=== PATIENT | female | born 1995 | race Caucasian/White ===

== ENCOUNTER 2017-01-12 18:31 | Inpatient (IN) | payer OTHER ==
[~2017-01-12] VITALS: Ht 167.6 cm; Wt 104.0 kg
[2017-01-12] MEDS: LACTATED RINGER'S 1,000 ML IV SCH
[2017-01-12 19:11] VITALS: Ht 167.6 cm; Wt 104.0 kg
[2017-01-12] MEDS ORDERED: LACTATED RINGER'S 1,000 ML IV ONE (19:30)
[2017-01-12] MEDS ORDERED: PREN1TAB79 PO (19:40)
[2017-01-12] MEDS ORDERED: FERR325C PO (19:40)
[2017-01-12 19:41] VITALS: BP 129/77
[2017-01-12] MEDS ORDERED: LACTATED RINGER'S 1,000 ML IV* SCH (20:30)
[2017-01-12 20:45] LABS: ADD UMIC YES; URINE BILIRUBIN (Dip) NEGATIVE (NEGATIVE); URINE BLOOD (Dip) NEGATIVE (NEGATIVE); URINE COLOR YELLOW (YELLOW); URINE GLUCOSE (Dip) NEGATIVE (NEGATIVE); URINE KETONES (Dip) TRACE (NEGATIVE); URINE LEUKOCYTE ESTERASE (Dip) 1+ (NEGATIVE); URINE NITRITE (Dip) NEGATIVE (NEGATIVE); URINE TOTAL PROTEIN (Dip) NEGATIVE (NEGATIVE); URINE UROBILINOGEN (Dip) 0.2 E.U./dL (0.1-1.0)
[2017-01-12 20:57] LABS: BACTERIA,URINE FEW; SQUAMOUS EPITHELIAL CELL,UR MODERATE
[2017-01-12 20:58] LABS: URINE RBCS 0-2 /HPF (0)
--- NOTE | 2017-01-12 21:02 | RADRPT ---
PROCEDURE: US OB AND ULTRASOUND CERVIX. CLINICAL INDICATION: Size and dates , labor TECHNIQUE: Multiple sonographic images of the pelvis and gravid uterus were obtained. The images were reviewed on a PACS workstation. Transvaginal images of the cervix were also obtained. COMPARISON: No prior studies are available for comparison. FINDINGS: The cervix is closed with a length of 4.2 cm. There is a single viable intrauterine gestation. Cardiac activity is present with 146 beats per min [place]. There is a vertex presentation. The placenta is anterior. There is no evidence for an abruption or placenta previa. There is a normal amount of amniotic fluid with an TOÑO = 9.1 cm. Measurements were made in order to determine age. The results are as follows: BPD =7.8 cm HC =28.2 cm AC =26.4 cm FL =6.3 cm Estimated gestational age of approximately 31 weeks and 2 days based on ultrasound measurements. Clinical age: 32 weeks and 3 days. The estimated date of delivery is 03/14/2017, based on ultrasound measurements. The EFW = 1725 g, 11%, based on LMP age. RPTAT: AA IMPRESSION: Single viable intrauterine gestation of approximately 31 weeks and 2 days based on ultrasound measu rements. .Jad Quiroz MD, Date Time Electronically viewed and signed by .Jad Quiroz MD, MD on 01/12/2017 21:02 .S/
[2017-01-12 22:00] LABS: ADD SCAN DIFF NO
[2017-01-12] MEDS ORDERED: MAGNESIUM SULFATE 4 GM/100 ML 100 ML IV ONE (22:00)
[2017-01-12 22:04] LABS: BASOPHILS % 0.3 % (0.0-2.0); EOSINOPHILS # 0.4 10^3/ul (0.0-0.5); EOSINOPHILS % 2.9 % (0.0-7.0); HEMATOCRIT 33.3 % (37.0-47.0); HEMOGLOBIN 10.8 g/dl (12.0-16.0); LYMPHOCYTES # 2.8 10^3/ul (0.8-2.9); LYMPHOCYTES % 18.7 % (18.0-55.0); MEAN CORPUSCULAR HEMOGLOBIN 27.5 pg (29.0-33.0); MEAN CORPUSCULAR HGB CONC 32.4 g/dl (32.0-37.0); MEAN CORPUSCULAR VOLUME 84.7 fl (72.0-104.0); MEAN PLATELET VOLUME 10.6 fl (7.4-10.4); MONOCYTES % 6.4 % (0.0-13.0); NEUTROPHIL # 10.6 10^3/ul (1.6-7.5); NEUTROPHILS % 71.1 % (30.0-74.0); PLATELET COUNT 317 10^3/UL (140-415); RED BLOOD COUNT 3.93 10^6/ul (4.20-5.40); RED CELL DISTRIBUTION WIDTH 13.5 % (11.5-14.5); WHITE BLOOD COUNT 14.9 10^3/ul (4.8-10.8)
[2017-01-12 22:28] LABS: INR 0.93; PROTIME 12.5 Sec (12.2-14.2)
[2017-01-12] MEDS: MAGNESIUM SULFATE 20 GM/500 ML 500 ML IV SCH (22:58)
[2017-01-12] MEDS: BETAMET NA PHOS/AC(6 MG/ML) 5ML INJ IM SCH (22:59)
--- NOTE | 2017-01-13 05:25 | TRIAGE ---
OB Triage Datetime Report Generated by CPN: 01/13/2017 05:25 Datetime: 01/13/2017 05:00 Labor Evaluation Frequency: 0 Monitor Mode: External Heart Rate FHR Baseline Rate: 130 Monitor Mode: External US FHR Baseline Changes: No Baseline Change Variability: Moderate 6-25 bpm Accelerations: 15X15 Decelerations: None Category: Category I Datetime: 01/13/2017 04:00 Labor Evaluation Frequency: 0 Monitor Mode: External Comments: POOR QUALITY WHILE SLEEPING ON HER SIDE. Datetime: 01/13/2017 03:00 Labor Evaluation Frequency: 0 Monitor Mode: External Heart Rate FHR Baseline Rate: 130 Monitor Mode: External US Comments: POOR QUALITY Datetime: 01/13/2017 02:21 Comments: UP TO BRP W/ASSIST Datetime: 01/13/2017 02:00 Labor Evaluation Frequency: 0 Monitor Mode: External Heart Rate FHR Baseline Rate: 130 Monitor Mode: External US FHR Baseline Changes: No Baseline Change Variability: Moderate 6-25 bpm Accelerations: 15X15 Decelerations: None Category: Category I Datetime: 01/13/2017 01:00 Labor Evaluation Frequency: 0 Monitor Mode: External Heart Rate FHR Baseline Rate: 130 Monitor Mode: External US FHR Baseline Changes: No Baseline Change Variability: Moderate 6-25 bpm Accelerations: 15X15 Decelerations: None Category: Category I Datetime: 01/13/2017 00:00 Labor Evaluation Frequency: 0 Monitor Mode: External Heart Rate FHR Baseline Rate: 130 Monitor Mode: External US FHR Baseline Changes: No Baseline Change Variability: Moderate 6-25 bpm Accelerations: 15X15 Decelerations: None Category: Category I Datetime: 01/12/2017 23:24 Stage of : Antepartum Assessment Type: Ongoing Assessment Maternal Assessment Level of Consciousness: Fully Conscious DTR's/Clonus: DTRs 2+; No Clonus Headache: Denies Blurred Vision: No Respiratory Effort: Unlabored; Regular Rhythm; Equal Expansion Breath Sounds, Left: Clear and Equal Breath Sounds, Right: Clear and Equal Nausea/Vomiting: Denies RUQ Epigastric Pain: Denies Lower Extremities Edema: None Degree: None Upper Extremities Edema: None Degree: None Facial Edema: None Temperature Route: Oral Fall Risk Assessment History of Falling: (0) No Secondary Diagnosis: (0) No Ambulatory Aid: (0) Bedrest/Nurse Assist IV Therapy: (0) No Gait: (0) Normal/Bedrest/Immobile Mental Status: (0) Oriented to Own Ability Fall Score: 0 Fall Risk Score Definition: No Risk: No action required Pain Assessment Pain Presence: None/Denies Pain Type: N/A Datetime: 01/12/2017 23:12 Vaginal Exam Membrane Status: Intact Datetime: 01/12/2017 23:00 Stage of : OB Triage Stage of : Antepartum Labor Evaluation Frequency: Occasional Monitor Mode: External Duration (sec)2399: 40 Quality: Mild Pattern: Normal: <= 5 Contractions in 10 Minutes Resting Tone [place]: Relaxed Heart Rate FHR Baseline Rate: 135 Monitor Mode: External US Variability: Moderate 6-25 bpm Accelerations: 15X15 Decelerations: None Category: Category I Datetime: 01/12/2017 22:00 Stage of : OB Triage Labor Evaluation Frequency: Occasional Monitor Mode: External Duration (sec)2399: 40-60 Quality: Mild Pattern: Normal: <= 5 Contractions in 10 Minutes Resting Tone [place]: Relaxed Heart Rate FHR Baseline Rate: 140 Monitor Mode: External US FHR Baseline Changes: No Baseline Change Variability: Moderate 6-25 bpm Accelerations: 15X15 Decelerations: None Category: Category I Datetime: 01/12/2017 21:26 Stage of : OB Triage Datetime: 01/12/2017 21:23 Stage of : OB Triage Datetime: 01/12/2017 21:00 Stage of : OB Triage Labor Evaluation Frequency: Occasional Monitor Mode: External Duration (sec)2399: 40-70 Quality: Mild Pattern: Normal: <= 5 Contractions in 10 Minutes Resting Tone [place]: Relaxed Heart Rate FHR Baseline Rate: 140 Monitor Mode: External US FHR Baseline Changes: No Baseline Change Variability: Moderate 6-25 bpm Accelerations: 15X15 Decelerations: None Category: Category I Datetime: 01/12/2017 20:01 Stage of : OB Triage Labor Evaluation Frequency: Irregular Monitor Mode: External Duration (sec)2399: 40-60 Quality: Mild Pattern: Normal: <= 5 Contractions in 10 Minutes Resting Tone [place]: Relaxed Heart Rate FHR Baseline Rate: 140 Monitor Mode: External US Variability: Moderate 6-25 bpm Accelerations: 15X15 Decelerations: Variable Category: Category II Datetime: 01/12/2017 19:23 Stage of : OB Triage Datetime: 01/12/2017 19:08 Assessment Type: Triage Maternal Assessment Level of Consciousness: Fully Conscious DTR's/Clonus: DTRs 2+; No Clonus Headache: Denies Blurred Vision: No Respiratory Effort: Unlabored; Regular Rhythm; Equal Expansion Breath Sounds, Left: Clear and Equal Breath Sounds, Right: Clear and Equal Nausea/Vomiting: Denies RUQ Epigastric Pain: Denies Facial Edema: None Fall Risk Assessment History of Falling: (0) No Secondary Diagnosis: (0) No Ambulatory Aid: (0) Bedrest/Nurse Assist IV Therapy: (0) No Gait: (0) Normal/Bedrest/Immobile Mental Status: (0) Oriented to Own Ability Fall Score: 0 Fall Risk Score Definition: No Risk: No action required Datetime: 01/12/2017 19:03 Time of Arrival: 01/12/2017 18:22 EGA: 32.3 Arrived By: Ambulatory Arrived From: Home Chief Complaint: pt. came to hospital c/o uc since 1030am, pain level 5/10 Movement: Present Contractions: Regular Abdominal Trauma: Not Applicable Patient Complaints: Contractions Time Provider Notified: 01/12/2017 19:00 Provider Notified: Initial Plan: u/s for efw, cxl, tere, ua, ffn, lr 1000 bolus
[2017-01-13] MEDS: MAGNESIUM SULFATE 20 GM/500 ML 500 ML IV SCH ×2 (07:49→17:04)
[2017-01-13] MEDS: MULTIVIT/MIN/FOLATE/IRON/PREN TAB PO SCH (08:37)
[2017-01-13] MEDS: FERROUS SULFATE (EC) 325 MG TAB PO SCH (08:37)
[2017-01-13] MEDS: LACTATED RINGER'S 1,000 ML IV SCH ×2 (09:37→22:52)
--- NOTE | 2017-01-13 14:43 | HP ---
DATE OF ADMISSION: 01/12/2017 HISTORY OF PRESENT ILLNESS: A 21-year-old female 3, para 1-0-1-1, estimated date of deliver y 03/06/2017 at 32+ weeks' gestation presented with contractions. The patient denied rupture of mem branes or vaginal bleeding. PAST MEDICAL HISTORY: Unremarkable. PAST SURGICAL HISTORY: section. ALLERGIES: NO KNOWN ALLERGIES. FAMILY HISTORY: Noncontributory. PHYSICAL EXAMINATION: VITAL SIGNS: Patient is afebrile. Vital signs stable. HEAD, NECK AND CHEST: Within normal limits. ABDOMEN: Soft, nontender and gravid. EXTREMITIES: Within normal limits. NEUROLOGIC: Within normal limits. On external monitor contractions are noted. Workup in the obstetrics triage included a Fibron ectin which was reported to be positive. IMPRESSION: at 32+ weeks with previous section and labor contractions. PLAN: Admit, intravenous magnesium sulfate for tocolysis. Intramuscular betamethasone for jorgito ng maturity. Dictated By: BEAU PATIÑO MD GD/NTS Conf#: [id number] DID#: [id number]
[2017-01-13] MEDS: BETAMET NA PHOS/AC(6 MG/ML) 5ML INJ IM SCH (22:48)
[2017-01-14] MEDS: MAGNESIUM SULFATE 20 GM/500 ML 500 ML IV SCH ×2 (02:14→12:59)
[2017-01-14] MEDS: FERROUS SULFATE (EC) 325 MG TAB PO SCH ×2 (09:23→22:21)
[2017-01-14] MEDS: MULTIVIT/MIN/FOLATE/IRON/PREN TAB PO SCH (09:23)
[2017-01-14] MEDS: LACTATED RINGER'S 1,000 ML IV SCH (12:49)
--- NOTE | 2017-01-14 18:43 | QN ---
Documentation Comment No complaint Afebrile VSS Continue with IV magnesium sulfate BEAU PATIÑO MD Jan 14, 2017 18:43
[2017-01-14 19:12] LABS: ADD SCAN DIFF NO
[2017-01-14 19:22] LABS: BASOPHILS % 0.1 % (0.0-2.0); EOSINOPHILS % 0.1 % (0.0-7.0); HEMOGLOBIN 9.9 g/dl (12.0-16.0); LYMPHOCYTES # 1.9 10^3/ul (0.8-2.9); LYMPHOCYTES % 11.6 % (18.0-55.0); MEAN CORPUSCULAR HEMOGLOBIN 29.1 pg (29.0-33.0); MEAN CORPUSCULAR HGB CONC 34.1 g/dl (32.0-37.0); MEAN CORPUSCULAR VOLUME 85.3 fl (72.0-104.0); MEAN PLATELET VOLUME 10.1 fl (7.4-10.4); MONOCYTE # 1.2 10^3/ul (0.3-0.9); MONOCYTES % 7.3 % (0.0-13.0); NEUTROPHILS % 79.4 % (30.0-74.0); PLATELET COUNT 319 10^3/UL (140-415); RED CELL DISTRIBUTION WIDTH 13.5 % (11.5-14.5); WHITE BLOOD COUNT 16.4 10^3/ul (4.8-10.8)
[2017-01-14 19:35] LABS: ALBUMIN 3.7 g/dl (3.3-4.9); ALBUMIN/GLOBULIN RATIO 1.23; CALCIUM 7.3 mg/dl (8.4-10.2); CREATININE 0.5 mg/dl (0.44-1.00); POTASSIUM 3.7 mmol/L (3.5-5.1); TOTAL PROTEIN 6.7 g/dl (6.1-8.1); URIC ACID 3.3 mg/dl (3.1-7.9)
[2017-01-14 19:43] LABS: ADD UMIC YES; URINE BILIRUBIN (Dip) NEGATIVE (NEGATIVE); URINE BLOOD (Dip) NEGATIVE (NEGATIVE); URINE COLOR LT. YELLOW (YELLOW); URINE GLUCOSE (Dip) NEGATIVE (NEGATIVE); URINE KETONES (Dip) NEGATIVE (NEGATIVE); URINE LEUKOCYTE ESTERASE (Dip) TRACE (NEGATIVE); URINE NITRITE (Dip) NEGATIVE (NEGATIVE); URINE TOTAL PROTEIN (Dip) NEGATIVE (NEGATIVE); URINE UROBILINOGEN (Dip) 0.2 E.U./dL (0.1-1.0)
[2017-01-14 20:05] LABS: SQUAMOUS EPITHELIAL CELL,UR MODERATE; URINE RBCS NONE SEEN /HPF (0)
[2017-01-14 20:06] LABS: BACTERIA,URINE MODERATE
[2017-01-15] MEDS: LACTATED RINGER'S 1,000 ML IV SCH ×2 (03:09→16:17)
[2017-01-15] MEDS: MULTIVIT/MIN/FOLATE/IRON/PREN TAB PO SCH (09:09)
[2017-01-15] MEDS: FERROUS SULFATE (EC) 325 MG TAB PO SCH ×2 (09:09→21:16)
[2017-01-15] MEDS: LABETALOL 100 MG TAB PO SCH ×2 (13:03→21:16)
--- NOTE | 2017-01-15 16:02 | CONS ---
DATE OF ADMISSION: 01/12/2017 DATE OF CONSULTATION: 01/15/2017 TYPE OF CONSULTATION: Obstetrics. HISTORY OF PRESENT ILLNESS: The patient apparently was admitted on the with complaint of contra ctions. She was placed on magnesium sulfate and given betamethasone. This morning she started havi ng elevated blood pressures in the severe range, she has no GI or neurologic symptoms. Her history i s significant of previous preeclampsia, diagnosed at 34 weeks with delivery at 40 weeks. OBSTETRIC HISTORY: Per above. REVIEW OF SYSTEMS: All negative. PHYSICAL EXAMINATION: VITAL SIGNS: Blood pressures currently was 66/72. Physical examination deferred. heart tone s reassuring with areas of interruption, but in all reassuring. Contractions overall none. AST, ALT, creatinine and platelets are normal. A 24-hour urine was started yesterday and will be ov er at about 8 this evening. IMPRESSION: 1. Intrauterine at 32 weeks and 6 days, status post magnesium sulfate and betamethasone f or labor with currently newly diagnosed severe gestational hypertension pending 24-hour urin e protein results. 2. History of preeclampsia. RECOMMENDATIONS: Start labetalol 100 mg twice a day. We will follow up with the results of the 24- hour urine for protein tomorrow and depending on the effect of the blood pressure medications on blo od pressure, then also the result of the 24-hour urine for protein and status and maternal sta tus, we will decide on disposition tomorrow. Dictated By: VIRGINIA CARTER/ANI Conf#: [id number] DID#: [id number]
--- NOTE | 2017-01-15 20:31 | QN ---
Documentation Comment No complaint Afebrile BP improved after patine is started on Labetalol Strip Reactive Await 24 hour urine collection. BEAU PATIÑO MD Jan 15, 2017 20:31
[2017-01-16] MEDS: LACTATED RINGER'S 1,000 ML IV SCH (06:09)
[2017-01-16] MEDS: MULTIVIT/MIN/FOLATE/IRON/PREN TAB PO SCH (08:50)
[2017-01-16] MEDS: LABETALOL 100 MG TAB PO SCH (08:51)
[2017-01-16] MEDS: FERROUS SULFATE (EC) 325 MG TAB PO SCH (08:51)
--- NOTE | 2017-01-16 13:44 | DS ---
DATE OF ADMISSION: 01/12/2017 DATE OF DISCHARGE: 01/16/2017 ADMITTING DIAGNOSIS: at 32+ weeks with previous section and labor contractions. HISTORY: A 21-year-old female 3, para 1-0-1-1 at 32+ weeks' gestation at the time of admiss ion. The patient presented with contractions. PAST SURGICAL HISTORY: Significant for section. HOSPITAL COURSE: The patient was admitted on 01/12/2017. The patient was given intravenous magnesi um sulfate for tocolysis, intramuscular betamethasone was given for lung maturity. During the hospital course, the patient's blood pressure was noted to be increasing. The patient had workup w ith -induced hypertension panel and 24-hour urine collection. After completing the course of betamethasone, magnesium sulfate was discontinued. The workup for preeclampsia revealed a 24-nicol r urine collection total protein 476. The patient's platelets and liver enzymes were normal. The p atient was evaluated by perinatologist, Dr. Cid, on 01/15/2017. The patient was started on labeta lol to control her blood pressure. Recommendation of perinatologist was to discharge the patient ho nv on 01/16/2017 with outpatient followup. CONDITION ON DISCHARGE: Stable. DISCHARGE INSTRUCTIONS 1. Diet: Regular. 2. Activities: Modified bed rest at home. MEDICATIONS: 1. Labetalol 100 mg 3 times a day. 2. Continue with vitamins and ferrous sulfate. FOLLOWUP: Follow up in antepartum unit on 01/19/2017 for antepartum testing. FINAL DIAGNOSES: 1. , not delivered. 2. Threatened labor. 3. Preeclampsia. Dictated By: BEAU CAIN/NTS Conf#: [id number] DID#: [id number]
== END 2017-01-16 12:50 | disposition home or self-care (01) | DRG 778 ==
LOC: OBT 18:31 → L-D 18:31 → OBG 21:29 → OBT 21:29 → OBG 01-15 20:35
PROVIDERS: ADMIT Obstetrics & Gynecology; ATTEND Obstetrics & Gynecology
DX: O60.03 Preterm labor without delivery, third trimester (principal); O14.93 Unspecified pre-eclampsia, third trimester; Z3A.32 32 weeks gestation of pregnancy
CPT/HCPCS: 36415; 76815; 76817; 80053; 81001; 82731; 83735; 84156; 84560; 85025; 85610; 85730; 86592; 86900; 86901; 87086; 96360; 96361; 96365; 96372; G0463; J0702; J3475; J7120

== ENCOUNTER 2017-02-28 20:21 | Inpatient (IN) | payer OTHER ==
[~2017-02-28] VITALS: Ht 167.6 cm; Wt 110.8 kg
[~2017-02-28 20:21] MED LIST: FERR325C PO; PREN1TAB79 PO
[2017-02-28] MEDS ORDERED: METHYLERGONOVINE 0.2 MG INJ IM PRN (21:30)
[2017-02-28] MEDS ORDERED: MISOPROSTOL 200 MCG TAB PR PRN (21:30)
[2017-02-28] MEDS ORDERED: CARBOPROST 250 MCG INJ IM PRN (21:30)
[2017-02-28] MEDS ORDERED: LACTATED RINGER'S 1,000 ML IV ONE (21:30)
[2017-02-28] MEDS ORDERED: OXYTOCIN 30 UNITS/LR 500 ML IV PRN (21:30)
[2017-02-28] MEDS ORDERED: CEFAZOLIN 2 GM/50 ML (PMX) 50 ML IV SCH (21:30)
[2017-02-28 21:53] VITALS: Ht 167.6 cm; Wt 110.8 kg
[2017-02-28 21:54] VITALS: BP 127/59; RESP 18
[2017-02-28 21:57] LABS: ADD SCAN DIFF NO
[2017-02-28 21:59] LABS: BASOPHIL # 0.1 10^3/ul (0.0-0.1); BASOPHILS % 0.4 % (0.0-2.0); EOSINOPHILS # 0.2 10^3/ul (0.0-0.5); EOSINOPHILS % 1.9 % (0.0-7.0); HEMATOCRIT 31.8 % (37.0-47.0); HEMOGLOBIN 10.7 g/dl (12.0-16.0); LYMPHOCYTES # 2.5 10^3/ul (0.8-2.9); LYMPHOCYTES % 20.8 % (18.0-55.0); MEAN CORPUSCULAR HGB CONC 33.6 g/dl (32.0-37.0); MEAN CORPUSCULAR VOLUME 83.2 fl (72.0-104.0); MEAN PLATELET VOLUME 10.1 fl (7.4-10.4); MONOCYTE # 0.9 10^3/ul (0.3-0.9); MONOCYTES % 7.4 % (0.0-13.0); NEUTROPHIL # 8.4 10^3/ul (1.6-7.5); PLATELET COUNT 330 10^3/UL (140-415); RED BLOOD COUNT 3.82 10^6/ul (4.20-5.40); RED CELL DISTRIBUTION WIDTH 14.1 % (11.5-14.5); WHITE BLOOD COUNT 12.2 10^3/ul (4.8-10.8)
[2017-02-28] MEDS ORDERED: ONDANSETRON 4 MG INJ IV ONE (22:36)
[2017-02-28] MEDS ORDERED: NALOXONE (0.4 MG/ML) INJ IV PRN (23:00)
[2017-02-28] MEDS ORDERED: DIPHENHYDRAMINE 50 MG INJ IV PRN (23:00)
[2017-02-28] MEDS ORDERED: KETOROLAC 30 MG INJ IV PRN (23:00)
[2017-02-28] MEDS ORDERED: HYDROmorphONE (0.2 MG/ML) 10ML SYG IV PRN (23:00)
[2017-02-28] MEDS ORDERED: HYDROmorphONE 1 MG/ML SYG IV PRN (23:00)
[2017-02-28] MEDS ORDERED: PROCHLORPERAZINE 10 MG INJ IV PRN ×2 (23:00)
[2017-02-28] MEDS ORDERED: FAMOTIDINE 20 MG INJ IV ONE (23:00)
[2017-02-28] MEDS ORDERED: MEPERIDINE 25 MG INJ IV PRN (23:00)
[2017-02-28] MEDS ORDERED: ONDANSETRON 4 MG INJ IV PRN ×2 (23:00)
[2017-02-28 23:11] LABS: INR 0.89; PARTIAL THROMBOPLASTIN TIME 25.8 Sec (25.0-35.0); PT RATIO 0.9
--- NOTE | 2017-02-28 23:46 | HP ---
Date/Time of Note Date/Time of Note DATE: 02/28/17 TIME: 23:41 OB - History Hx of Present Chief Complaint: contractions Estimated Due Date: Mar 06, 2017 : 4 Para: 1 Spontaneous : 1 Therapeutic : 0 Care: Good Care Ultrasounds: Normal mid trimester US Obstetrical Complications: None Medical Complications: None Past Family/Social History * Past Medical, Surgical, Family and Obstetric Histories reviewed from chart. GBS Status: Negative OB Admission Exam Vital Signs Vital Signs Vital Signs Date Time Temp Pulse Resp B/P Pulse Ox O2 Delivery O2 Flow Rate FiO2 02/28/17 21:54 98.3 18 127/59 Room Air Physical Exam HEENT: WNL Heart: Rhythm Normal Lungs: Clear, Equal Abdomen: WNL Extremities: Normal Reflexes: Normal Heart Rate: 120's Accelerations: Accelerations Present Decelerations: No Decelerations Varibility: Moderate Last 72 hours Lab Results CBC & BMP 02/28/17 21:45 OB Assessment/Plan Reason for admission: other ( 39 weeks and 1 day with previous Cesarea.) Plan: Section BEAU PATIÑO MD Feb 28, 2017 23:46
[2017-02-28] MEDS ORDERED: morphine SULFATE/PF (10 MG/10 ML) INJ ONE (23:51)
[2017-02-28] MEDS ORDERED: OXYTOCIN 10 UNIT INJ ONE (23:51)
[2017-03-01] MEDS ORDERED: DEXAMETHASONE 4 MG/ML 1 ML INJ ONE (00:20)
[2017-03-01] MEDS ORDERED: NEOSTIGMINE 3 MG/3 ML SYRINGE ONE (00:20)
[2017-03-01] MEDS ORDERED: METOCLOPRAMIDE 10 MG INJ ONE (00:20)
[2017-03-01] MEDS ORDERED: PHENYLephrine (100 MCG/ML) 5ML SYG ONE ×2 (00:20→00:39)
[2017-03-01] MEDS ORDERED: EPHEDrine SULFATE 50 MG/5 ML SYG ONE (00:21)
--- NOTE | 2017-03-01 01:31 | TRIAGE ---
OB Triage Datetime Report Generated by CPN: 03/01/2017 01:30 Datetime: 02/28/2017 22:30 Stage of : Labor Labor Evaluation Frequency: 2-10 Monitor Mode: External Duration (sec)2399: 40-60 Pattern: Normal: <= 5 Contractions in 10 Minutes Resting Tone [place]: Relaxed Heart Rate FHR Baseline Rate: 120 Monitor Mode: External US Variability: Moderate 6-25 bpm Accelerations: 15X15 Decelerations: None Category: Category I Pain Assessment Pain Scale: 7 Pain Presence: Intermittent Pain Type: Contraction Pain Location: Abdomen Pain Relief Measures: Comfort Measures Datetime: 02/28/2017 22:02 Time of Arrival: 02/28/2017 21:30 EGA: 39.1 Arrived By: Wheelchair Arrived From: Emergency Dept Movement: Present Patient Complaints: Contractions Time Provider Notified: 02/28/2017 20:10 Provider Notified: Dr Anthony Datetime: 02/28/2017 21:30 Assessment Type: Admission Assessment Time of Arrival: 02/28/2017 20:10 EGA: 39.1 Arrived By: Wheelchair Arrived From: Home Chief Complaint: G 3P1 w/ hx c/s x1 sent from clinic d/t c/o occas uc. Pt w/ limited care and HTN on labetalol Movement: Present Contractions: Irregular Contractions: q30-60 Rupture of Membranes: Denies Vaginal Bleeding: None Vaginal Discharge: Denies Recent Sexual Intercouse: Denies Abdominal Trauma: Not Applicable Patient Complaints: Contractions Time Provider Notified: 03/01/2017 20:10 Provider Notified: Dr Anthony Initial Plan: EFM Maternal Assessment Level of Consciousness: Fully Conscious DTR's/Clonus: DTRs 2+; No Clonus Headache: Denies Blurred Vision: No Respiratory Effort: Unlabored; Regular Rhythm; Equal Expansion Breath Sounds, Left: Clear and Equal Breath Sounds, Right: Clear and Equal Nausea/Vomiting: Denies RUQ Epigastric Pain: Denies Lower Extremities Edema: None Degree: None Upper Extremities Edema: None Degree: None Facial Edema: None Fall Risk Assessment History of Falling: (0) No Secondary Diagnosis: (0) No Ambulatory Aid: (0) Bedrest/Nurse Assist IV Therapy: (20) Yes Gait: (0) Normal/Bedrest/Immobile Mental Status: (0) Oriented to Own Ability Fall Score: 20 Fall Risk Score Definition: No Risk: No action required Labor Evaluation Frequency: 1.5-5 Duration (sec)2399: 40-60 Pattern: Normal: <= 5 Contractions in 10 Minutes Resting Tone [place]: Relaxed Heart Rate FHR Baseline Rate: 125 Variability: Moderate 6-25 bpm Accelerations: 15X15 Decelerations: None Category: Category I Pain Assessment Pain Scale: 6 Pain Presence: Intermittent Pain Type: Contraction Pain Location: Abdomen Pain Goal: 2 Datetime: 01/16/2017 12:19 Temperature Route: Oral Datetime: 01/16/2017 10:19 Labor Evaluation Frequency: 0 Monitor Mode: External Pattern: Normal: <= 5 Contractions in 10 Minutes Resting Tone [place]: Relaxed Heart Rate FHR Baseline Rate: 130 Monitor Mode: External US FHR Baseline Changes: No Baseline Change Variability: Moderate 6-25 bpm Accelerations: 15X15 Decelerations: None Category: Category I Datetime: 01/16/2017 09:00 Labor Evaluation Frequency: 0 Monitor Mode: External Pattern: Normal: <= 5 Contractions in 10 Minutes Resting Tone [place]: Relaxed Heart Rate FHR Baseline Rate: 120 Monitor Mode: External US FHR Baseline Changes: No Baseline Change Variability: Moderate 6-25 bpm Accelerations: 15X15 Decelerations: None Category: Category I Datetime: 01/16/2017 07:41 Assessment Type: Ongoing Assessment Maternal Assessment Level of Consciousness: Fully Conscious DTR's/Clonus: DTRs 2+; No Clonus Headache: Denies Blurred Vision: No Respiratory Effort: Unlabored; Regular Rhythm; Equal Expansion Breath Sounds, Left: Clear and Equal Breath Sounds, Right: Clear and Equal Nausea/Vomiting: Denies RUQ Epigastric Pain: Denies Lower Extremities Edema: None Degree: None Upper Extremities Edema: None Degree: None Facial Edema: None Temperature Route: Oral Fall Risk Assessment History of Falling: (0) No Secondary Diagnosis: (0) No Ambulatory Aid: (0) Bedrest/Nurse Assist Gait: (0) Normal/Bedrest/Immobile Mental Status: (0) Oriented to Own Ability Labor Evaluation Frequency: 0 Monitor Mode: External Pattern: Normal: <= 5 Contractions in 10 Minutes Resting Tone [place]: Relaxed Heart Rate FHR Baseline Rate: 120 Monitor Mode: External US FHR Baseline Changes: No Baseline Change Variability: Moderate 6-25 bpm Accelerations: 15X15 Decelerations: None Category: Category I Pain Assessment Pain Scale: 0 Pain Presence: None/Denies Datetime: 01/16/2017 06:25 Stage of : Antepartum Monitor Mode: External Quality: Mild Pattern: Normal: <= 5 Contractions in 10 Minutes Resting Tone [place]: Relaxed Heart Rate FHR Baseline Rate: 140 Monitor Mode: External US Variability: Moderate 6-25 bpm Accelerations: 15X15 Pain Assessment Pain Scale: 0 Pain Presence: None/Denies Pain Type: N/A Datetime: 01/16/2017 05:36 Stage of : Antepartum Monitor Mode: External Resting Tone [place]: Relaxed Heart Rate FHR Baseline Rate: 130 Monitor Mode: External US Pain Presence: None/Denies Datetime: 01/16/2017 04:19 Stage of : Antepartum Monitor Mode: External Resting Tone [place]: Relaxed Heart Rate FHR Baseline Rate: 140 Monitor Mode: External US Datetime: 01/16/2017 03:00 Stage of : Antepartum Monitor Mode: External Quality: Mild Pattern: Normal: <= 5 Contractions in 10 Minutes Resting Tone [place]: Relaxed Heart Rate FHR Baseline Rate: 135 Monitor Mode: External US FHR Baseline Changes: No Baseline Change Comments: Baby difficult to monitor d/t pt position Datetime: 01/16/2017 02:04 Stage of : Antepartum Heart Rate FHR Baseline Rate: 150 Monitor Mode: External US Comments: Baby difficult to keep on monitor. Pt sleeping and requested to be left alone to sleep Datetime: 01/16/2017 01:43 Monitor Mode: External Quality: Mild Pattern: Normal: <= 5 Contractions in 10 Minutes Resting Tone [place]: Relaxed Heart Rate FHR Baseline Rate: 140 Monitor Mode: External US Variability: Moderate 6-25 bpm Accelerations: 15X15 Datetime: 01/15/2017 23:55 Monitor Mode: External Quality: Mild Resting Tone [place]: Relaxed Monitor Mode: External US Variability: Moderate 6-25 bpm Comments: Pt requests to be left alone to sleep Datetime: 01/15/2017 23:20 Stage of : Antepartum Heart Rate FHR Baseline Rate: 130 Monitor Mode: External US Variability: Moderate 6-25 bpm Accelerations: 15X15 Decelerations: None Category: Category I Datetime: 01/15/2017 22:53 Stage of : Antepartum Monitor Mode: External Quality: Mild Resting Tone [place]: Relaxed Heart Rate FHR Baseline Rate: 135 Monitor Mode: External US Variability: Moderate 6-25 bpm Pain Assessment Pain Scale: 0 Pain Presence: None/Denies Pain Type: N/A Datetime: 01/15/2017 22:17 Stage of : Antepartum Monitor Mode: External Quality: Mild Resting Tone [place]: Relaxed Heart Rate FHR Baseline Rate: 140 Monitor Mode: External US Variability: Moderate 6-25 bpm Accelerations: 15X15 Decelerations: None Category: Category I Pain Presence: None/Denies Pain Type: N/A Datetime: 01/15/2017 21:47 Stage of : Antepartum Monitor Mode: External Quality: Mild Pattern: Normal: <= 5 Contractions in 10 Minutes Resting Tone [place]: Relaxed Heart Rate FHR Baseline Rate: 160 Monitor Mode: External US Variability: Moderate 6-25 bpm Accelerations: 15X15 Decelerations: None Category: Category I Pain Assessment Pain Scale: 0 Pain Presence: None/Denies Pain Type: N/A Datetime: 01/15/2017 21:18 Stage of : Antepartum Labor Evaluation Frequency: placed Monitor Mode: External Resting Tone [place]: Relaxed Comments: FHT 180 after hot shower Pain Assessment Pain Scale: 0 Pain Presence: None/Denies Pain Type: N/A Datetime: 01/15/2017 20:30 Stage of : Antepartum Datetime: 01/15/2017 20:05 Assessment Type: Ongoing Assessment Maternal Assessment Level of Consciousness: Fully Conscious DTR's/Clonus: DTRs 2+; No Clonus Headache: Denies Blurred Vision: No Respiratory Effort: Unlabored; Regular Rhythm; Equal Expansion Breath Sounds, Left: Clear and Equal Breath Sounds, Right: Clear and Equal Nausea/Vomiting: Denies RUQ Epigastric Pain: Denies Lower Extremities Edema: None Degree: None Upper Extremities Edema: None Degree: None Facial Edema: None Fall Risk Assessment History of Falling: (0) No Secondary Diagnosis: (0) No Ambulatory Aid: (0) Bedrest/Nurse Assist IV Therapy: (20) Yes Gait: (0) Normal/Bedrest/Immobile Mental Status: (0) Oriented to Own Ability Fall Score: 20 Fall Risk Score Definition: No Risk: No action required Datetime: 01/15/2017 19:19 Stage of : Antepartum Temperature Route: Oral Monitor Mode: External Quality: Mild Pattern: Normal: <= 5 Contractions in 10 Minutes Resting Tone [place]: Relaxed Heart Rate FHR Baseline Rate: 150 Monitor Mode: External US FHR Baseline Changes: No Baseline Change Variability: Moderate 6-25 bpm Accelerations: 15X15 Decelerations: Variable Category: Category II Pain Assessment Pain Scale: 0 Pain Presence: None/Denies Pain Type: N/A Datetime: 01/15/2017 18:59 Labor Evaluation Frequency: 0 Monitor Mode: External Pattern: Normal: <= 5 Contractions in 10 Minutes Resting Tone [place]: Relaxed Heart Rate FHR Baseline Rate: 140 Monitor Mode: External US FHR Baseline Changes: No Baseline Change Variability: Moderate 6-25 bpm Accelerations: 15X15 Decelerations: None Category: Category I Datetime: 01/15/2017 17:52 Labor Evaluation Frequency: 0 Monitor Mode: External Pattern: Normal: <= 5 Contractions in 10 Minutes Resting Tone [place]: Relaxed Heart Rate FHR Baseline Rate: 140 Monitor Mode: External US FHR Baseline Changes: No Baseline Change Variability: Moderate 6-25 bpm Accelerations: 15X15 Decelerations: None Category: Category I Datetime: 01/15/2017 16:52 Labor Evaluation Frequency: X1/HR Monitor Mode: External Duration (sec)2399: 50 Pattern: Normal: <= 5 Contractions in 10 Minutes Resting Tone [place]: Relaxed Heart Rate FHR Baseline Rate: 140 Monitor Mode: External US FHR Baseline Changes: No Baseline Change Variability: Moderate 6-25 bpm Accelerations: 15X15 Decelerations: None Category: Category I Datetime: 01/15/2017 16:00 Temperature Route: Oral Labor Evaluation Frequency: 0 Monitor Mode: External Pattern: Normal: <= 5 Contractions in 10 Minutes Resting Tone [place]: Relaxed Heart Rate FHR Baseline Rate: 130 Monitor Mode: External US FHR Baseline Changes: No Baseline Change Variability: Moderate 6-25 bpm Accelerations: 15X15 Decelerations: None Category: Category I Datetime: 01/15/2017 15:00 Labor Evaluation Frequency: X1/HR Monitor Mode: External Duration (sec)2399: 40 Pattern: Normal: <= 5 Contractions in 10 Minutes Resting Tone [place]: Relaxed Heart Rate FHR Baseline Rate: 130 Monitor Mode: External US FHR Baseline Changes: No Baseline Change Variability: Moderate 6-25 bpm Accelerations: 15X15 Decelerations: None Category: Category I Datetime: 01/15/2017 14:00 Labor Evaluation Frequency: 0 Monitor Mode: External Pattern: Normal: <= 5 Contractions in 10 Minutes Resting Tone [place]: Relaxed Heart Rate FHR Baseline Rate: 130 Monitor Mode: External US FHR Baseline Changes: No Baseline Change Variability: Moderate 6-25 bpm Accelerations: 15X15 Decelerations: None Category: Category I Datetime: 01/15/2017 13:00 Labor Evaluation Frequency: 0 Monitor Mode: External Pattern: Normal: <= 5 Contractions in 10 Minutes Resting Tone [place]: Relaxed Heart Rate FHR Baseline Rate: 130 Monitor Mode: External US FHR Baseline Changes: No Baseline Change Variability: Moderate 6-25 bpm Accelerations: 15X15 Decelerations: None Category: Category I Datetime: 01/15/2017 12:00 Temperature Route: Oral Labor Evaluation Frequency: X1/HR +IRRIT Monitor Mode: External Duration (sec)2399: 50 Pattern: Normal: <= 5 Contractions in 10 Minutes Resting Tone [place]: Relaxed Heart Rate FHR Baseline Rate: 120 Monitor Mode: External US FHR Baseline Changes: No Baseline Change Variability: Moderate 6-25 bpm Accelerations: 15X15 Decelerations: None Category: Category I Datetime: 01/15/2017 11:00 Labor Evaluation Frequency: 0 Monitor Mode: External Pattern: Normal: <= 5 Contractions in 10 Minutes Resting Tone [place]: Relaxed Heart Rate FHR Baseline Rate: 120 Monitor Mode: External US FHR Baseline Changes: No Baseline Change Variability: Moderate 6-25 bpm Accelerations: 15X15 Decelerations: None Category: Category I Datetime: 01/15/2017 10:00 Labor Evaluation Frequency: 0 Monitor Mode: External Quality: Mild Pattern: Normal: <= 5 Contractions in 10 Minutes Resting Tone [place]: Relaxed Heart Rate FHR Baseline Rate: 125 Monitor Mode: External US FHR Baseline Changes: No Baseline Change Variability: Moderate 6-25 bpm Accelerations: 15X15 Decelerations: None Category: Category I Datetime: 01/15/2017 09:00 Labor Evaluation Frequency: 0 Monitor Mode: External Pattern: Normal: <= 5 Contractions in 10 Minutes Resting Tone [place]: Relaxed Heart Rate FHR Baseline Rate: 125 Monitor Mode: External US FHR Baseline Changes: No Baseline Change Variability: Moderate 6-25 bpm Accelerations: 15X15 Decelerations: None Category: Category I Datetime: 01/15/2017 07:52 Assessment Type: Ongoing Assessment Maternal Assessment Level of Consciousness: Fully Conscious DTR's/Clonus: DTRs 2+; No Clonus Headache: Denies Blurred Vision: No Respiratory Effort: Unlabored; Regular Rhythm; Equal Expansion Breath Sounds, Left: Clear and Equal Breath Sounds, Right: Clear and Equal Nausea/Vomiting: Denies RUQ Epigastric Pain: Denies Lower Extremities Edema: None Degree: None Upper Extremities Edema: None Degree: None Facial Edema: None Fall Risk Assessment History of Falling: (0) No Secondary Diagnosis: (0) No Ambulatory Aid: (0) Bedrest/Nurse Assist Gait: (0) Normal/Bedrest/Immobile Mental Status: (0) Oriented to Own Ability Labor Evaluation Frequency: 0 Monitor Mode: External Pattern: Normal: <= 5 Contractions in 10 Minutes Resting Tone [place]: Relaxed Heart Rate FHR Baseline Rate: 120 Monitor Mode: External US FHR Baseline Changes: No Baseline Change Variability: Moderate 6-25 bpm Accelerations: 15X15 Decelerations: None Category: Category I Datetime: 01/15/2017 06:53 Stage of : Antepartum Labor Evaluation Frequency: NONE Monitor Mode: External Pattern: Normal: <= 5 Contractions in 10 Minutes Resting Tone [place]: Relaxed Heart Rate FHR Baseline Rate: 125 Monitor Mode: External US Variability: Moderate 6-25 bpm Accelerations: 15X15 Decelerations: None Category: Category I Comments: Loss of FHTs due to patient position and obesity. Pain Assessment Pain Scale: 0 Pain Presence: None/Denies Pain Type: N/A Pain Relief Measures: Comfort Measures Datetime: 01/15/2017 06:39 Stage of : Antepartum Monitor Mode: External [place] Datetime: 01/15/2017 06:38 Stage of : Antepartum Monitor Mode: External [place] Datetime: 01/15/2017 06:00 Stage of : Antepartum Labor Evaluation Frequency: X1 Monitor Mode: External Pattern: Normal: <= 5 Contractions in 10 Minutes Resting Tone [place]: Relaxed Heart Rate FHR Baseline Rate: 115 Monitor Mode: External US Variability: Moderate 6-25 bpm Accelerations: 15X15 Decelerations: None Category: Category I Pain Assessment Pain Scale: 0 Pain Presence: None/Denies Pain Type: N/A Pain Goal: 0 Pain Relief Measures: Comfort Measures Datetime: 01/15/2017 04:58 Labor Evaluation Frequency: none Monitor Mode: External Pattern: Normal: <= 5 Contractions in 10 Minutes Resting Tone [place]: Relaxed Heart Rate FHR Baseline Rate: 120 Monitor Mode: External US Variability: Moderate 6-25 bpm Accelerations: 15X15 Decelerations: None Category: Category I Datetime: 01/15/2017 04:55 Stage of : Antepartum Monitor Mode: External [place] Datetime: 01/15/2017 04:31 Stage of : Antepartum Monitor Mode: External [place] Datetime: 01/15/2017 04:18 Stage of : Antepartum Monitor Mode: External [place] Datetime: 01/15/2017 04:01 Stage of : Antepartum Labor Evaluation Frequency: none Monitor Mode: External Pattern: Normal: <= 5 Contractions in 10 Minutes Resting Tone [place]: Relaxed Heart Rate FHR Baseline Rate: 120 Monitor Mode: External US Variability: Moderate 6-25 bpm Accelerations: 15X15 Decelerations: None Category: Category I Comments: Loss of contact with FHTs due to patient position and obesity. Pain Assessment Pain Scale: 0 Pain Presence: None/Denies Pain Type: N/A Pain Relief Measures: Comfort Measures Datetime: 01/15/2017 03:35 Stage of : Antepartum Monitor Mode: External [place] Datetime: 01/15/2017 03:34 Stage of : Antepartum Monitor Mode: External [place] Datetime: 01/15/2017 03:33 Stage of : Antepartum Monitor Mode: External [place] Datetime: 01/15/2017 03:32 Stage of : Antepartum Monitor Mode: External US Datetime: 01/15/2017 03:31 Stage of : Antepartum Monitor Mode: External [place] Datetime: 01/15/2017 03:12 Stage of : Antepartum Monitor Mode: External US Datetime: 01/15/2017 03:11 Stage of : Antepartum Monitor Mode: External [place] Datetime: 01/15/2017 03:10 Stage of : Antepartum Monitor Mode: External [place] Datetime: 01/15/2017 03:09 Stage of : Antepartum Monitor Mode: External [place] Datetime: 01/15/2017 03:08 Stage of : Antepartum Monitor Mode: External [place] Datetime: 01/15/2017 03:07 Stage of : Antepartum Monitor Mode: External Pattern: Normal: <= 5 Contractions in 10 Minutes Resting Tone [place]: Relaxed Contraction Comments: NONE Heart Rate FHR Baseline Rate: 115 Monitor Mode: External [place] Variability: Moderate 6-25 bpm Accelerations: 15X15 Decelerations: None Category: Category I Pain Assessment Pain Scale: 0 Pain Presence: None/Denies Pain Type: N/A Pain Relief Measures: Comfort Measures Datetime: 01/15/2017 02:23 Stage of : Antepartum Monitor Mode: External [place] Datetime: 01/15/2017 02:01 Stage of : Antepartum Monitor Mode: External Pattern: Normal: <= 5 Contractions in 10 Minutes Resting Tone [place]: Relaxed Contraction Comments: No contractions Heart Rate FHR Baseline Rate: 120 Monitor Mode: External US Variability: Moderate 6-25 bpm Accelerations: Prolonged Decelerations: None Category: Category I Pain Assessment Pain Scale: 0 Pain Presence: None/Denies Pain Type: N/A Pain Relief Measures: Comfort Measures Datetime: 01/15/2017 01:00 Stage of : Antepartum Monitor Mode: External Pattern: Normal: <= 5 Contractions in 10 Minutes Resting Tone [place]: Relaxed Contraction Comments: NONE Heart Rate FHR Baseline Rate: 135 Monitor Mode: External US Variability: Moderate 6-25 bpm Accelerations: 15X15 Decelerations: None Category: Category I Comments: Loss of FHTs due to patient position and movement. Pain Assessment Pain Scale: 0 Pain Presence: None/Denies Pain Type: N/A Pain Relief Measures: Comfort Measures Datetime: 01/15/2017 00:32 Monitor Mode: External US Datetime: 01/15/2017 00:30 Monitor Mode: External US Datetime: 01/15/2017 00:28 Monitor Mode: External [place] Datetime: 01/14/2017 23:52 Stage of : Antepartum Labor Evaluation Frequency: occasional Monitor Mode: External Pattern: Normal: <= 5 Contractions in 10 Minutes Heart Rate FHR Baseline Rate: 115 Monitor Mode: External [place] Variability: Moderate 6-25 bpm Accelerations: 15X15 Decelerations: None Category: Category I Datetime: 01/14/2017 23:30 Stage of : Antepartum Datetime: 01/14/2017 23:00 Stage of : Antepartum Datetime: 01/14/2017 22:47 Stage of : Antepartum Labor Evaluation Frequency: occasional Monitor Mode: External Duration (sec)2399: 50-60 Pattern: Normal: <= 5 Contractions in 10 Minutes Resting Tone [place]: Relaxed Contraction Comments: Patient does not feel contractions. Heart Rate FHR Baseline Rate: 120 Monitor Mode: External US Variability: Moderate 6-25 bpm Accelerations: 15X15 Decelerations: None Category: Category I Comments: Loss of FHTs due to patient's position and movement. Pain Assessment Pain Scale: 0 Pain Presence: None/Denies Pain Type: N/A Pain Relief Measures: Comfort Measures Datetime: 01/14/2017 21:50 Stage of : Antepartum Labor Evaluation Frequency: NONE Monitor Mode: External Pattern: Normal: <= 5 Contractions in 10 Minutes Resting Tone [place]: Relaxed Heart Rate FHR Baseline Rate: 125 Monitor Mode: External US Variability: Moderate 6-25 bpm Accelerations: 15X15 Decelerations: None Category: Category I Pain Assessment Pain Scale: 0 Pain Presence: None/Denies Pain Type: N/A Pain Relief Measures: Comfort Measures Datetime: 01/14/2017 20:49 Stage of : Antepartum Labor Evaluation Frequency: NONE Monitor Mode: External Pattern: Normal: <= 5 Contractions in 10 Minutes Resting Tone [place]: Relaxed Heart Rate FHR Baseline Rate: 125 Monitor Mode: External US Variability: Moderate 6-25 bpm Accelerations: 15X15 Decelerations: None Category: Category I Pain Assessment Pain Scale: 0 Pain Presence: None/Denies Pain Type: N/A Pain Relief Measures: Comfort Measures Datetime: 01/14/2017 20:00 Stage of : Antepartum Datetime: 01/14/2017 19:47 Stage of : Antepartum Labor Evaluation Frequency: none Monitor Mode: External Pattern: Normal: <= 5 Contractions in 10 Minutes Resting Tone [place]: Relaxed Heart Rate FHR Baseline Rate: 120 Monitor Mode: External US Variability: Moderate 6-25 bpm Accelerations: 15X15 Decelerations: None Category: Category I Comments: Occasional loss of FHTs due to movement. Pain Assessment Pain Scale: 0 Pain Presence: None/Denies Pain Type: N/A Pain Relief Measures: Comfort Measures Datetime: 01/14/2017 19:45 Assessment Type: Ongoing Assessment Maternal Assessment Level of Consciousness: Fully Conscious DTR's/Clonus: DTRs 2+; No Clonus Headache: Denies Blurred Vision: No Respiratory Effort: Unlabored; Regular Rhythm; Equal Expansion Breath Sounds, Left: Clear and Equal Breath Sounds, Right: Clear and Equal Nausea/Vomiting: Denies RUQ Epigastric Pain: Denies Lower Extremities Edema: None Degree: None Upper Extremities Edema: None Degree: None Facial Edema: None Fall Risk Assessment History of Falling: (0) No Secondary Diagnosis: (0) No Ambulatory Aid: (0) Bedrest/Nurse Assist IV Therapy: (20) Yes Gait: (0) Normal/Bedrest/Immobile Mental Status: (0) Oriented to Own Ability Fall Score: 20 Fall Risk Score Definition: No Risk: No action required Datetime: 01/14/2017 19:00 Labor Evaluation Frequency: 0 Monitor Mode: External Resting Tone [place]: Relaxed Heart Rate FHR Baseline Rate: 130 Monitor Mode: External US FHR Baseline Changes: No Baseline Change Variability: Moderate 6-25 bpm Accelerations: 15X15 Decelerations: None Pain Assessment Pain Scale: 0 Pain Presence: None/Denies Pain Type: N/A Datetime: 01/14/2017 18:00 Labor Evaluation Frequency: 0 Monitor Mode: External Resting Tone [place]: Relaxed Heart Rate FHR Baseline Rate: 130 Monitor Mode: External US FHR Baseline Changes: No Baseline Change Variability: Moderate 6-25 bpm Accelerations: 15X15 Decelerations: None Pain Assessment Pain Scale: 0 Pain Presence: None/Denies Pain Type: N/A Datetime: 01/14/2017 17:00 Labor Evaluation Frequency: 0 Monitor Mode: External Resting Tone [place]: Relaxed Heart Rate FHR Baseline Rate: 130 Monitor Mode: External US FHR Baseline Changes: No Baseline Change Variability: Moderate 6-25 bpm Accelerations: 15X15 Decelerations: None Pain Assessment Pain Scale: 0 Pain Presence: None/Denies Pain Type: N/A Datetime: 01/14/2017 16:00 Labor Evaluation Frequency: 0 Monitor Mode: External Resting Tone [place]: Relaxed Monitor Mode: External US FHR Baseline Changes: No Baseline Change Variability: Moderate 6-25 bpm Accelerations: 15X15 Decelerations: None Category: Category I Pain Assessment Pain Scale: 0 Pain Presence: None/Denies Pain Type: N/A Datetime: 01/14/2017 15:00 Maternal Assessment Level of Consciousness: Fully Conscious DTR's/Clonus: DTRs 1+ Headache: Denies Blurred Vision: No Respiratory Effort: Unlabored Breath Sounds, Right: Clear and Equal Nausea/Vomiting: Denies RUQ Epigastric Pain: Denies Labor Evaluation Frequency: 0 Monitor Mode: External Resting Tone [place]: Relaxed Heart Rate FHR Baseline Rate: 130 Monitor Mode: External US FHR Baseline Changes: No Baseline Change Variability: Moderate 6-25 bpm Accelerations: 10X10 Decelerations: None Datetime: 01/14/2017 14:00 Maternal Assessment Level of Consciousness: Fully Conscious Headache: Denies Blurred Vision: No Respiratory Effort: Unlabored Nausea/Vomiting: Denies Labor Evaluation Frequency: 0 Monitor Mode: External Resting Tone [place]: Relaxed Monitor Mode: External US FHR Baseline Changes: No Baseline Change Variability: Moderate 6-25 bpm Accelerations: 15X15 Decelerations: None Category: Category I Pain Assessment Pain Scale: 0 Pain Presence: None/Denies Pain Type: N/A Datetime: 01/14/2017 13:35 Stage of : Antepartum Datetime: 01/14/2017 13:00 Labor Evaluation Frequency: 0 Monitor Mode: External Resting Tone [place]: Relaxed Heart Rate FHR Baseline Rate: 120 Monitor Mode: External US FHR Baseline Changes: No Baseline Change Variability: Moderate 6-25 bpm Accelerations: 15X15 Decelerations: None Category: Category I Pain Assessment Pain Scale: 0 Pain Presence: None/Denies Pain Type: N/A Datetime: 01/14/2017 12:00 Maternal Assessment Level of Consciousness: Fully Conscious DTR's/Clonus: DTRs 1+ Headache: Denies Blurred Vision: No Respiratory Effort: Unlabored Breath Sounds, Left: Clear and Equal Breath Sounds, Right: Clear and Equal Nausea/Vomiting: Denies RUQ Epigastric Pain: Denies Facial Edema: None Labor Evaluation Frequency: 0 Monitor Mode: External Resting Tone [place]: Relaxed Heart Rate FHR Baseline Rate: 120 Monitor Mode: External US FHR Baseline Changes: No Baseline Change Variability: Moderate 6-25 bpm Accelerations: 15X15 Decelerations: None Category: Category I Pain Assessment Pain Scale: 0 Pain Presence: None/Denies Pain Type: N/A Pain Goal: 0 Datetime: 01/14/2017 11:00 Labor Evaluation Frequency: 0 Monitor Mode: External Resting Tone [place]: Relaxed Heart Rate FHR Baseline Rate: 115 Monitor Mode: External US FHR Baseline Changes: No Baseline Change Variability: Moderate 6-25 bpm Accelerations: 15X15 Decelerations: None Category: Category I Pain Assessment Pain Scale: 0 Pain Presence: None/Denies Pain Type: N/A Datetime: 01/14/2017 10:00 Maternal Assessment Level of Consciousness: Fully Conscious DTR's/Clonus: DTRs 1+ Headache: Denies Blurred Vision: No Nausea/Vomiting: Denies RUQ Epigastric Pain: Denies Facial Edema: None Labor Evaluation Frequency: 0 Monitor Mode: Internal Resting Tone [place]: Relaxed Heart Rate FHR Baseline Rate: 110 Monitor Mode: External US FHR Baseline Changes: No Baseline Change Variability: Moderate 6-25 bpm Accelerations: 15X15 Decelerations: None Category: Category I Pain Assessment Pain Scale: 0 Pain Presence: None/Denies Pain Type: N/A Datetime: 01/14/2017 09:00 Labor Evaluation Frequency: 0 Monitor Mode: External Resting Tone [place]: Relaxed Heart Rate FHR Baseline Rate: 110 Monitor Mode: External US FHR Baseline Changes: No Baseline Change Variability: Moderate 6-25 bpm Accelerations: 15X15 Decelerations: None Category: Category I Pain Assessment Pain Scale: 0 Pain Presence: None/Denies Pain Type: N/A Datetime: 01/14/2017 07:37 Assessment Type: Ongoing Assessment Maternal Assessment Level of Consciousness: Fully Conscious Headache: Denies Blurred Vision: No Respiratory Effort: Unlabored; Regular Rhythm; Equal Expansion Breath Sounds, Left: Clear and Equal Breath Sounds, Right: Clear and Equal Nausea/Vomiting: Denies RUQ Epigastric Pain: Denies Lower Extremities Edema: None Upper Extremities Edema: None Facial Edema: None Fall Risk Assessment History of Falling: (0) No Secondary Diagnosis: (0) No Ambulatory Aid: (0) Bedrest/Nurse Assist Gait: (0) Normal/Bedrest/Immobile Mental Status: (0) Oriented to Own Ability Datetime: 01/14/2017 06:59 Labor Evaluation Frequency: 0 Monitor Mode: External Monitor Mode: External US Comments: POOR QUALITY Datetime: 01/14/2017 06:00 Labor Evaluation Frequency: 0 Monitor Mode: External Monitor Mode: External US Comments: POOR QUALITY Datetime: 01/14/2017 05:00 Labor Evaluation Frequency: 0 Monitor Mode: External Heart Rate FHR Baseline Rate: 120 Monitor Mode: External US FHR Baseline Changes: No Baseline Change Variability: Moderate 6-25 bpm Accelerations: 15X15 Decelerations: None Category: Category I Datetime: 01/14/2017 04:00 Labor Evaluation Frequency: 0 Monitor Mode: External Heart Rate FHR Baseline Rate: 120 Monitor Mode: External US FHR Baseline Changes: No Baseline Change Variability: Moderate 6-25 bpm Accelerations: 15X15 Decelerations: None Category: Category I Datetime: 01/14/2017 03:33 Temperature Route: Oral Pain Assessment Pain Scale: 0 Datetime: 01/14/2017 03:00 Labor Evaluation Frequency: 0 Monitor Mode: External Monitor Mode: External US Comments: POOR QUALITY Datetime: 01/14/2017 02:00 Labor Evaluation Frequency: 0 Monitor Mode: External Heart Rate FHR Baseline Rate: 120 Monitor Mode: External US FHR Baseline Changes: No Baseline Change Variability: Moderate 6-25 bpm Accelerations: 15X15 Decelerations: None Category: Category I Datetime: 01/14/2017 01:00 Labor Evaluation Frequency: 0 Monitor Mode: External Heart Rate FHR Baseline Rate: 120 Monitor Mode: External US FHR Baseline Changes: No Baseline Change Variability: Moderate 6-25 bpm Accelerations: 15X15 Decelerations: None Category: Category I Datetime: 01/14/2017 00:00 Labor Evaluation Frequency: 0 Monitor Mode: External Heart Rate FHR Baseline Rate: 120 Monitor Mode: External US FHR Baseline Changes: No Baseline Change Variability: Moderate 6-25 bpm Accelerations: 15X15 Decelerations: None Category: Category I Datetime: 01/13/2017 23:34 Temperature Route: Oral Pain Assessment Pain Scale: 0 Pain Presence: None/Denies Datetime: 01/13/2017 23:00 Labor Evaluation Frequency: 0 Monitor Mode: External Heart Rate FHR Baseline Rate: 120 Monitor Mode: External US FHR Baseline Changes: No Baseline Change Variability: Moderate 6-25 bpm Accelerations: 15X15 Decelerations: None Category: Category I Datetime: 01/13/2017 22:48 Pain Assessment Pain Scale: 0 Datetime: 01/13/2017 22:36 Monitor Mode: External US Datetime: 01/13/2017 22:00 Labor Evaluation Frequency: 0 Monitor Mode: External Heart Rate FHR Baseline Rate: 140 Monitor Mode: External US FHR Baseline Changes: No Baseline Change Variability: Moderate 6-25 bpm Accelerations: 15X15 Decelerations: None Category: Category I Datetime: 01/13/2017 21:51 Comments: SITTING UPRIGHT EATING DINNER FOOD FROM OUT[facility]IDE HOSP[facility] Datetime: 01/13/2017 21:01 Comments: EFM REAPPLIED Datetime: 01/13/2017 21:00 Assessment Type: Ongoing Assessment Maternal Assessment Level of Consciousness: Fully Conscious Headache: Denies Blurred Vision: No Respiratory Effort: Unlabored; Regular Rhythm; Equal Expansion Breath Sounds, Left: Clear and Equal Breath Sounds, Right: Clear and Equal Nausea/Vomiting: Denies RUQ Epigastric Pain: Denies Lower Extremities Edema: None Upper Extremities Edema: None Facial Edema: None Fall Risk Assessment History of Falling: (0) No Secondary Diagnosis: (0) No Ambulatory Aid: (0) Bedrest/Nurse Assist Gait: (0) Normal/Bedrest/Immobile Mental Status: (0) Oriented to Own Ability Datetime: 01/13/2017 20:00 Labor Evaluation Frequency: 0 Monitor Mode: External Heart Rate FHR Baseline Rate: 120 Monitor Mode: External US FHR Baseline Changes: No Baseline Change Variability: Moderate 6-25 bpm Accelerations: 15X15 Decelerations: None Category: Category I Datetime: 01/13/2017 19:30 Pain Assessment Pain Scale: 0 Datetime: 01/13/2017 19:00 Stage of : Antepartum Maternal Assessment Level of Consciousness: Fully Conscious Headache: Denies Nausea/Vomiting: Denies RUQ Epigastric Pain: Denies Labor Evaluation Frequency: 0/hr Monitor Mode: External Heart Rate FHR Baseline Rate: 120 Monitor Mode: External [place] Variability: Moderate 6-25 bpm Accelerations: 15X15 Decelerations: None Pain Presence: None/Denies Vaginal Bleeding: None Datetime: 01/13/2017 18:46 Maternal Assessment Level of Consciousness: Fully Conscious Headache: Denies Blurred Vision: No Respiratory Effort: Unlabored Nausea/Vomiting: Denies RUQ Epigastric Pain: Denies Monitor Mode: Palpation Resting Tone [place]: Relaxed Pain Presence: None/Denies Datetime: 01/13/2017 18:00 Stage of : Antepartum Maternal Assessment Level of Consciousness: Fully Conscious Headache: Denies Nausea/Vomiting: Denies RUQ Epigastric Pain: Denies Labor Evaluation Frequency: 0/hr Monitor Mode: External Heart Rate FHR Baseline Rate: 120 Monitor Mode: External US Variability: Moderate 6-25 bpm Accelerations: 15X15 Decelerations: None Pain Presence: None/Denies Vaginal Bleeding: None Datetime: 01/13/2017 17:54 Maternal Assessment Level of Consciousness: Fully Conscious DTR's/Clonus: DTRs 2+ Headache: Denies Blurred Vision: No Nausea/Vomiting: Hx of Nausea/Vomiting RUQ Epigastric Pain: Denies Pain Presence: None/Denies Datetime: 01/13/2017 17:00 Stage of : Antepartum Maternal Assessment Level of Consciousness: Fully Conscious DTR's/Clonus: DTRs 2+ Headache: Denies Nausea/Vomiting: Denies RUQ Epigastric Pain: Denies Labor Evaluation Frequency: 0/hr Monitor Mode: External Heart Rate FHR Baseline Rate: 120 Monitor Mode: External US Variability: Moderate 6-25 bpm Accelerations: 15X15 Decelerations: None Pain Presence: None/Denies Vaginal Bleeding: None Datetime: 01/13/2017 16:00 Stage of : Antepartum Maternal Assessment Level of Consciousness: Fully Conscious Headache: Denies Nausea/Vomiting: Denies RUQ Epigastric Pain: Denies Labor Evaluation Frequency: 0/hr Monitor Mode: External Heart Rate FHR Baseline Rate: 120 Monitor Mode: External US Variability: Moderate 6-25 bpm Accelerations: 15X15 Decelerations: None Pain Presence: None/Denies Vaginal Bleeding: None Datetime: 01/13/2017 15:00 Stage of : Antepartum Maternal Assessment Level of Consciousness: Fully Conscious Headache: Denies Nausea/Vomiting: Denies RUQ Epigastric Pain: Denies Labor Evaluation Frequency: 0/hr Monitor Mode: External Heart Rate FHR Baseline Rate: 120 Monitor Mode: External US Variability: Moderate 6-25 bpm Accelerations: 15X15 Decelerations: None Pain Presence: None/Denies Vaginal Bleeding: None Datetime: 01/13/2017 14:45 Maternal Assessment Level of Consciousness: Fully Conscious DTR's/Clonus: DTRs 2+ Headache: Denies Blurred Vision: No Respiratory Effort: Unlabored Breath Sounds, Left: Clear and Equal Breath Sounds, Right: Clear and Equal Nausea/Vomiting: Denies RUQ Epigastric Pain: Denies Monitor Mode: Palpation Resting Tone [place]: Relaxed Pain Presence: None/Denies Datetime: 01/13/2017 14:00 Stage of : Antepartum Maternal Assessment Level of Consciousness: Fully Conscious Headache: Denies Nausea/Vomiting: Denies RUQ Epigastric Pain: Denies Labor Evaluation Frequency: 0/hr Monitor Mode: External Heart Rate FHR Baseline Rate: 120 Monitor Mode: External US Variability: Moderate 6-25 bpm Accelerations: 15X15 Decelerations: None Pain Presence: None/Denies Vaginal Bleeding: None Datetime: 01/13/2017 13:24 Heart Rate FHR Baseline Rate: 120 Monitor Mode: External [place] Variability: Moderate 6-25 bpm Accelerations: 15X15 Decelerations: None Datetime: 01/13/2017 13:00 Stage of : Antepartum Maternal Assessment Level of Consciousness: Fully Conscious DTR's/Clonus: DTRs 2+ Headache: Denies Nausea/Vomiting: Denies RUQ Epigastric Pain: Denies Labor Evaluation Frequency: 0/hr Monitor Mode: External Heart Rate FHR Baseline Rate: 120 Monitor Mode: External US Variability: Moderate 6-25 bpm Accelerations: 15X15 Decelerations: None Pain Presence: None/Denies Vaginal Bleeding: None Datetime: 01/13/2017 12:57 Resting Tone [place]: Relaxed Pain Presence: None/Denies Datetime: 01/13/2017 12:00 Stage of : Antepartum Maternal Assessment Level of Consciousness: Fully Conscious Headache: Denies Nausea/Vomiting: Denies RUQ Epigastric Pain: Denies Labor Evaluation Frequency: 0/hr Monitor Mode: External Heart Rate FHR Baseline Rate: 120 Monitor Mode: External US Variability: Moderate 6-25 bpm Accelerations: 15X15 Decelerations: None Pain Presence: None/Denies Vaginal Bleeding: None Datetime: 01/13/2017 11:00 Stage of : Antepartum Maternal Assessment Level of Consciousness: Fully Conscious Headache: Denies Nausea/Vomiting: Denies RUQ Epigastric Pain: Denies Labor Evaluation Frequency: 0/hr Monitor Mode: External Heart Rate FHR Baseline Rate: 120 Monitor Mode: External US Variability: Moderate 6-25 bpm Accelerations: 15X15 Decelerations: None Pain Presence: None/Denies Vaginal Exam Membrane Status: Intact Vaginal Bleeding: None Datetime: 01/13/2017 10:31 Pain Presence: None/Denies Datetime: 01/13/2017 10:00 Stage of : Antepartum Maternal Assessment Level of Consciousness: Fully Conscious Headache: Denies Nausea/Vomiting: Denies RUQ Epigastric Pain: Denies Labor Evaluation Frequency: 0/hr Monitor Mode: External Heart Rate FHR Baseline Rate: 120 Monitor Mode: External US Variability: Moderate 6-25 bpm Accelerations: 15X15 Decelerations: None Pain Presence: None/Denies Vaginal Exam Membrane Status: Intact Vaginal Bleeding: None Datetime: 01/13/2017 09:37 Maternal Assessment Level of Consciousness: Fully Conscious DTR's/Clonus: DTRs 2+ Headache: Denies Blurred Vision: No Respiratory Effort: Unlabored Nausea/Vomiting: Denies Pain Presence: None/Denies Datetime: 01/13/2017 09:00 Stage of : Antepartum Maternal Assessment Level of Consciousness: Fully Conscious DTR's/Clonus: DTRs 2+ Headache: Denies Nausea/Vomiting: Denies RUQ Epigastric Pain: Denies Labor Evaluation Frequency: 0/hr Monitor Mode: External Heart Rate FHR Baseline Rate: 120 Monitor Mode: External US Variability: Moderate 6-25 bpm Accelerations: 15X15 Decelerations: None Pain Presence: None/Denies Vaginal Exam Membrane Status: Intact Vaginal Bleeding: None Datetime: 01/13/2017 08:33 Monitor Mode: Palpation Resting Tone [place]: Relaxed Datetime: 01/13/2017 08:00 Stage of : Antepartum Maternal Assessment Level of Consciousness: Fully Conscious Headache: Denies Nausea/Vomiting: Denies RUQ Epigastric Pain: Denies Labor Evaluation Frequency: 0/hr Monitor Mode: External Heart Rate FHR Baseline Rate: 125 Monitor Mode: External US Variability: Moderate 6-25 bpm Accelerations: 15X15 Decelerations: None Pain Presence: None/Denies Vaginal Exam Membrane Status: Intact Vaginal Bleeding: None Datetime: 01/13/2017 07:14 Heart Rate FHR Baseline Rate: 135 Monitor Mode: External US Variability: Moderate 6-25 bpm Accelerations: 15X15 Decelerations: None Category: Category I Datetime: 01/13/2017 07:10 Stage of : Antepartum Assessment Type: Ongoing Assessment Maternal Assessment Level of Consciousness: Fully Conscious Maternal Assessment Level of Consciousness: Fully Conscious DTR's/Clonus: DTRs 2+; No Clonus DTR's/Clonus: DTRs 2+ Headache: Denies Headache: Denies Blurred Vision: No Blurred Vision: No Respiratory Effort: Unlabored; Regular Rhythm; Equal Expansion Respiratory Effort: Unlabored Breath Sounds, Left: Clear and Equal Breath Sounds, Left: Clear and Equal Breath Sounds, Right: Clear and Equal Breath Sounds, Right: Clear and Equal Nausea/Vomiting: Denies Nausea/Vomiting: Denies RUQ Epigastric Pain: Denies RUQ Epigastric Pain: Denies Lower Extremities Edema: None Degree: None Upper Extremities Edema: None Degree: None Facial Edema: None Fall Risk Assessment History of Falling: (0) No Secondary Diagnosis: (0) No Ambulatory Aid: (0) Bedrest/Nurse Assist IV Therapy: (20) Yes Gait: (0) Normal/Bedrest/Immobile Mental Status: (0) Oriented to Own Ability Fall Score: 20 Fall Risk Score Definition: No Risk: No action required Resting Tone [place]: Relaxed Contraction Comments: pt. denies Datetime: 01/13/2017 06:56 Labor Evaluation Frequency: 0 Monitor Mode: External Heart Rate FHR Baseline Rate: 120 Monitor Mode: External US Comments: POOR QUALITY Datetime: 01/13/2017 06:00 Labor Evaluation Frequency: 0 Monitor Mode: External Heart Rate FHR Baseline Rate: 130 Monitor Mode: External US FHR Baseline Changes: No Baseline Change Variability: Moderate 6-25 bpm Accelerations: 15X15 Decelerations: None Category: Category I Datetime: 01/12/2017 23:24 Fall Score: 0 Fall Risk Score Definition: No Risk: No action required Datetime: 01/12/2017 19:08 Fall Score: 0 Fall Risk Score Definition: No Risk: No action required Datetime: 01/12/2017 19:03 EGA: 32.3
[2017-03-01] MEDS ORDERED: LABE200T25 PO (01:34)
[2017-03-01] MEDS: OXYTOCIN 30 UNITS/LR 500 ML IV SCH ×4 (02:30→09:32)
[2017-03-01 05:00] VITALS: BP 148/57; PULSE 100; RESP 18
[2017-03-01 05:15] VITALS: BP 122/51; PULSE 96; RESP 18
[2017-03-01] MEDS ORDERED: OXYTOCIN 30 UNITS/LR 500 ML IV PRN (06:00)
[2017-03-01] MEDS ORDERED: MISOPROSTOL 200 MCG TAB PR PRN (06:00)
[2017-03-01] MEDS ORDERED: METHYLERGONOVINE 0.2 MG INJ IM PRN (06:00)
[2017-03-01] MEDS ORDERED: LANOLIN 7 GM TUBE TOP PRN (06:00)
[2017-03-01] MEDS: LABETALOL 200 MG TAB PO SCH ×3 (06:00→22:00)
[2017-03-01] MEDS ORDERED: CARBOPROST 250 MCG INJ IM PRN (06:00)
[2017-03-01 08:00] VITALS: BP 104/51; PULSE 99; RESP 18
[2017-03-01] MEDS: LACTATED RINGER'S 1,000 ML IV SCH ×3 (08:52→21:32)
[2017-03-01] MEDS: SENNA/DOCUSATE NA (8.6MG/50MG) TAB PO SCH ×2 (08:52→21:59)
[2017-03-01 12:00] VITALS: BP 123/55; RESP 18
[2017-03-01 15:50] VITALS: BP 122/56; PULSE 109; RESP 18
[2017-03-01 19:50] VITALS: BP 125/59; PULSE 110; RESP 18
[2017-03-01] MEDS: FERROUS GLUCONATE (EC) 325 MG TAB PO SCH (21:59)
[2017-03-01] MEDS ORDERED: KETOROLAC 30 MG INJ IV PRN (23:00)
[2017-03-01] MEDS ORDERED: OXYCODONE/ACETAMINOPHEN (5/325) TAB PO PRN (23:35)
[2017-03-02] VITALS: BP 121/59; PULSE 108; RESP 17
[2017-03-02 04:00] VITALS: BP 131/68; PULSE 111; RESP 18
[2017-03-02] MEDS: IBUPROFEN 800 MG TAB PO SCH ×3 (05:30→21:39)
[2017-03-02] MEDS: LACTATED RINGER'S 1,000 ML IV SCH ×2 (05:30→13:32)
[2017-03-02] MEDS: LABETALOL 200 MG TAB PO SCH ×4 (06:00→23:46)
[2017-03-02 09:00] VITALS: BP 142/91; PULSE 97; RESP 18
[2017-03-02] MEDS: FERROUS GLUCONATE (EC) 325 MG TAB PO SCH ×3 (09:06→23:45)
[2017-03-02] MEDS: SENNA/DOCUSATE NA (8.6MG/50MG) TAB PO SCH ×2 (09:06→21:39)
[2017-03-02 11:05] LABS: ADD SCAN DIFF NO
[2017-03-02 11:08] LABS: BASOPHILS % 0.4 % (0.0-2.0); EOSINOPHILS # 0.3 10^3/ul (0.0-0.5); EOSINOPHILS % 2.5 % (0.0-7.0); HEMATOCRIT 27.6 % (37.0-47.0); HEMOGLOBIN 9.2 g/dl (12.0-16.0); LYMPHOCYTES # 2.8 10^3/ul (0.8-2.9); LYMPHOCYTES % 28.3 % (18.0-55.0); MEAN CORPUSCULAR HEMOGLOBIN 28.4 pg (29.0-33.0); MEAN CORPUSCULAR HGB CONC 33.3 g/dl (32.0-37.0); MEAN CORPUSCULAR VOLUME 85.2 fl (72.0-104.0); MEAN PLATELET VOLUME 9.8 fl (7.4-10.4); MONOCYTES % 9.6 % (0.0-13.0); NEUTROPHIL # 5.9 10^3/ul (1.6-7.5); NEUTROPHILS % 58.7 % (30.0-74.0); PLATELET COUNT 278 10^3/UL (140-415); RED BLOOD COUNT 3.24 10^6/ul (4.20-5.40); RED CELL DISTRIBUTION WIDTH 14.2 % (11.5-14.5)
[2017-03-02] MEDS: OXYCODONE/ACETAMINOPHEN (5/325) TAB PO PRN ×2 (11:52→19:34)
[2017-03-02 12:00] VITALS: BP 128/63; PULSE 97; RESP 18
[2017-03-02 16:00] VITALS: BP 135/63; PULSE 89; RESP 18
[2017-03-02 19:45] VITALS: BP 117/55; PULSE 95; RESP 18
--- NOTE | 2017-03-02 20:21 | QN ---
Documentation Comment No complaint Afebrile VSS Abdomen soft Stable Continue present care. BEAU PATIÑO MD Mar 02, 2017 20:21
[2017-03-03 05:11] VITALS: BP 139/63; PULSE 81; RESP 18
[2017-03-03] MEDS: IBUPROFEN 800 MG TAB PO SCH ×3 (05:52→21:09)
[2017-03-03 07:50] VITALS: BP 131/70; PULSE 79; RESP 19
[2017-03-03] MEDS: LABETALOL 200 MG TAB PO SCH ×3 (07:50→21:09)
[2017-03-03] MEDS: OXYCODONE/ACETAMINOPHEN (5/325) TAB PO PRN ×2 (07:55→15:55)
[2017-03-03] MEDS: FERROUS GLUCONATE (EC) 325 MG TAB PO SCH ×3 (09:20→21:09)
[2017-03-03] MEDS: SENNA/DOCUSATE NA (8.6MG/50MG) TAB PO SCH ×2 (09:20→21:08)
[2017-03-03] MEDS ORDERED: IBUP800T25 PO ×2 (15:45→15:54)
--- NOTE | 2017-03-03 15:50 | DS ---
Date/Time of Note Date/Time of Note DATE: 03/03/17 TIME: 15:48 Obstetrical Discharge Record Final Diagnosis Final Diagnosis: Term delivered Section Section: Repeat Condition on Discharge Physical Assessment Voiding: Yes Bowel Movement: Yes Breast: Soft, non-tender Fundus: Firm Abdomen and Incision: Incision intact Calf Tenderness: No Patient Condition: Stable BEAU PATIÑO MD Mar 03, 2017 15:49
--- NOTE | 2017-03-03 15:54 | OPR ---
DATE OF OPERATION: 03/01/2017 SURGEON: Eric Anthony MD. ACCESS COORDINATOR: Sarahy Mckinney MD. ANESTHESIOLOGIST: Ernesto Zhang MD. PREOPERATIVE DIAGNOSIS: at 39 weeks and 2 days. Previous section. POSTOPERATIVE DIAGNOSIS: at 39 weeks and 2 days. Previous section. OPERATION PERFORMED: Repeat low transverse section. ANESTHESIA: Spinal. OPERATIVE PROCEDURE: The patient was taken to the operating room and placed in a prone position on the operating table. After successful spinal anesthesia was given. The patient was placed in supine position. The area was prepared and draped in the usual sterile fashion. Spinal anesthesia was assessed and was satisfactory. Using a scalpel, a Pfannenstiel incision was made about 2 fingerbreadths above the symphysis pubis. The incision was made din the fascia, and the fascia was incised and extended laterally with Gillette scissors. Two Karely's were used to separate the fascia from the muscle. The muscle was dissected down to the peritoneum. The peritoneum was secured with 2 Kellys and incised with Metzenbaum scissors. Upon entering the pleural cavity. Using a scalpel, a small transverse incision was made in the lower segment of the uterus. Upon entering the uterine cavity, bandage scissors were inserted to extend the incision bilaterally. Care of the baby was delivered from cephalic presentation. After suctioned clear of amniotic fluid, the baby was handed off to the team in attendance. 's were 8 and 9. The placenta was delivered without difficulty. The uterus was closed with #1 Monocryl continuous lock. After assuring hemostasis, both ovaries and tubes were inspected and looked normal. The intrauterine cavity was irrigated with warm saline. The peritoneum was closed with #2-0 Vicryl continuous suture. Fascia was closed with #1 Vicryl continuous in 2 segments. Subcutaneous tissue was reapproximated with #2-0 plain gut. The skin was closed durga. Estimated blood loss was 500 mL. Complications were none. All counts were correct. Dictated By: Eric Anthony MD /[email or web address] /Document#: [id number]
[2017-03-03 15:55] VITALS: BP 140/80; PULSE 69; RESP 20
[2017-03-03 20:00] VITALS: BP 129/68; PULSE 81; RESP 18
[2017-03-04 04:07] VITALS: BP 127/65; PULSE 91; RESP 20
[2017-03-04] MEDS: OXYCODONE/ACETAMINOPHEN (5/325) TAB PO PRN (04:07)
[2017-03-04] MEDS: LABETALOL 200 MG TAB PO SCH ×2 (05:28→14:06)
[2017-03-04] MEDS: IBUPROFEN 800 MG TAB PO SCH ×2 (05:28→14:06)
[2017-03-04 07:40] VITALS: BP 127/58; PULSE 80; RESP 17
[2017-03-04] MEDS ORDERED: DIPHTH/TET/ACEL PERTUSS (ADULT) 0.5 ML VIAL IM* ONE (09:00)
[2017-03-04] MEDS: SENNA/DOCUSATE NA (8.6MG/50MG) TAB PO SCH (09:07)
[2017-03-04] MEDS: FERROUS GLUCONATE (EC) 325 MG TAB PO SCH ×2 (09:07→14:06)
== END 2017-03-04 15:33 | disposition home or self-care (01) | DRG 766 ==
LOC: OBT 20:21 → L-D 20:23 → OBT 20:30 → L-D 23:48 → PP1 03-01 05:17
PROVIDERS: ADMIT Obstetrics & Gynecology; ATTEND Obstetrics & Gynecology
PROC: 4A1HX4Z Monitoring of Products of Conception, Cardiac Electrical Activity, External Approach (ICD-10-PCS; 2017-02-28)
PROC: 10D00Z1 Extraction of Products of Conception, Low, Open Approach (ICD-10-PCS; principal; 2017-03-01)
PROC: 3E0234Z Introduction of Serum, Toxoid and Vaccine into Muscle, Percutaneous Approach (ICD-10-PCS; 2017-03-04)
DX: O34.211 Maternal care for low transverse scar from previous cesarean delivery (principal); Z23 Encounter for immunization; Z3A.39 39 weeks gestation of pregnancy; Z37.0 Single live birth
CPT/HCPCS: 62319; 85025; 85610; 85730; 86592; 86850; 86900; 86901; 90715; 99464; G0463; J0690; J1100; J1200; J1885; J2274; J2370; J2405; J2590; J2710; J2765; J7120